=== PATIENT | male | born 1990 | race African-American/Black ===

== ENCOUNTER 2023-01-26 20:25 | Emergency (ER) | payer MEDICAID ==
[~2023-01-26] VITALS: Ht 167.6 cm; Wt 64.0 kg
[2023-01-26 20:45] VITALS: BP 111/82; PULSE 81; RESP 17; TEMP 98.4; O2SAT 98
== END 2023-01-26 23:08 | disposition home or self-care (01) ==
LOC: ER 20:35
DX: K59.00 Constipation, unspecified (principal); Z88.2 Allergy status to sulfonamides; Z88.8 Allergy status to other drugs, medicaments and biological substances; Z98.890 Other specified postprocedural states; Z53.21 Procedure and treatment not carried out due to patient leaving prior to being seen by health care provider
CPT/HCPCS: 99281